=== PATIENT | male | born 1965 | race Caucasian/White ===

== ENCOUNTER 2024-05-08 17:33 | Observation (INO) ==
[2024-05-08 18:13] LABS: BILIRUBIN,URINE SMALL (NEGATIVE); GLUCOSE, URINE (UA) 100 mg/dL (NEGATIVE); KETONES,URINE (UA) NEGATIVE (NEGATIVE); LEUKOCYTE ESTERASE, URINE TRACE (NEGATIVE); NITRITE,URINE NEGATIVE (NEGATIVE); OCCULT BLOOD,URINE LARGE (NEGATIVE); PH,URINE 6.5 PH (5.0-7.5); PROTEIN,URINE 100 mg/dL (NEGATIVE); UROBILINOGEN,URINE 1 (NORMAL) E.U./dL (NORMAL)
[2024-05-08 18:20] LABS: CLARITY,URINE TURBID (CLEAR)
[2024-05-08 18:22] LABS: BACTERIA,URINE Rare /HPF (None Seen); RBC,URINE TNTC /HPF (0-5); SQUAMOUS EPITHELIAL CELL,UR NONE SEEN (<= Few); WBC,URINE 0-3 /HPF (0-3)
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
[2024-05-08 19:29] LABS: BASOPHILS # (AUTO) 0.1 10^3/uL (0.0-0.1); BASOPHILS % (AUTO) 0.6 %; EOSINOPHILS # (AUTO) 0.1 10^3/uL (0.0-0.7); EOSINOPHILS % (AUTO) 0.5 %; HCT - HEMATOCRIT 40.1 % (42.0-52.0); HGB - HEMOGLOBIN 13.1 g/dL (14.0-18.0); LYMPHOCYTES # (AUTO) 2.3 10^3/uL (1.5-3.5); LYMPHOCYTES % (AUTO) 11.5 %; MEAN CORPUSCULAR HEMOGLOBIN 29.8 pg (27.0-31.0); MEAN CORPUSCULAR HGB CONC 32.7 g/dL (32.0-36.0); MEAN CORPUSCULAR VOLUME 91.1 fL (80.0-94.0); MEAN PLATELET VOLUME 9.8 fL (7.4-11.4); MONOCYTES # (AUTO) 0.9 10^3/uL (0.0-1.0); MONOCYTES % (AUTO) 4.3 %; NEUTROPHILS # (AUTO) 16.4 10^3/uL (1.5-6.6); NEUTROPHILS % (AUTO) 82.6 %; PLT - PLATELET COUNT 411 10^3/uL (130-450); RED CELL DISTRIBUTION WIDTH 14.5 % (12.0-15.0); WHITE BLOOD COUNT 19.9 x10^3/uL (4.8-10.8)
[2024-05-08 20:00] LABS: ALBUMIN 4.4 g/dL (3.2-5.5); ALBUMIN/GLOBULIN RATIO 1.1 (1.0-2.2); BILIRUBIN,TOTAL 0.8 mg/dL (0.2-1.0); CALCIUM 9.6 mg/dL (8.5-10.3); CREATININE 2.1 mg/dL (0.6-1.3); TOTAL PROTEIN 8.4 g/dL (6.4-8.9)
[2024-05-08] MEDS ORDERED: iohexoL-300 150 ML BOTTLE ONE (22:15)
[2024-05-08] MEDS: iohexoL-300 150 ML BOTTLE IVP ONE (22:57)
--- NOTE | 2024-05-08 23:13 | ED Physician Documentation ---
ED Addendum Addendum Addendum: Care from nurse practitioner Gil. Briefly 59-year-old homeless male presents with painless hematuria. On my read of his CT he has a very large left ureterolith that has made it surprisingly far down despite being about 10 x 12 mm. He has presumably acute JOSE ALBERTO (no prior labs and does not see doctors) and a white count of 19,000. Spoke with Dr. Rolle, urology recommends admit to medicine and will see in the morning. N.p.o. after midnight. Medicine consult placed at 11:11 PM. Discharge Plan Discharge Patient Disposition: ED Place in Observation Condition: Fair Clinical Impression: Hydronephrosis with renal and ureteral calculous obstruction, JOSE ALBERTO (acute kidney injury) Hematuria Qualifiers: Hematuria type: gross Qualified Code(s): R31.0 - Gross hematuria Leukocytosis Qualifiers: Leukocytosis type: unspecified Qualified Code(s): D72.829 - Elevated white blood cell count, unspecified Print Language: Beninese Stand Alone Forms: PCP List
[2024-05-08] MEDS: cefTRIAXone 1 GM in SODIUM CHLORIDE 0.9% MINIBAG 100 ML IV STA (23:18)
--- NOTE | 2024-05-08 23:26 | CT Report ---
PROCEDURE: CT IVP INDICATIONS: new hematuria CONTRAST: Omni 300 140ml TECHNIQUE: A [address] of the abdomen and pelvis was performed. Non-contrast and contrast images were recorded and evaluated at appropriate window settings. Images were recorded and evaluated at appropriate windo w settings. Reformats: coronal and sagittal. For radiation dose reduction, the following was used: au tomated exposure control, adjustment of mA and/or kV according to patient size. COMPARISON: None. FINDINGS: Image quality: Diagnostic. Lower chest: Unremarkable. Liver: No solid mass. Gallbladder: Biliary tree: No intrahepatic or extrahepatic dilation, accounting for age. Spleen: Spleen is absent. The splenosis in the left upper quadrant, probably posttraumatic. Pancreas: No pancreatic ductal dilation. Adrenals: No adrenal nodule. Kidneys and ureters: Obstructing 1.1 cm stone in the distal left ureter, resulting in severe left-vanessa ed hydronephrosis. There is decreased enhancement of the left kidney, with urothelial wall thickening and passing about the renal pelvis. A couple of punctate, nonobstructing right-sided nephrolithiasis . Stomach, bowel and peritoneum: No bowel distension. No pathologic free fluid. Abdominal Lymph nodes: No central or retroperitoneal adenopathy. Vessels: Unremarkable. Patent portal vein. Reproductive organs: Unremarkable. Bladder: Diffuse bladder wall thickening. No calcified bladder stones. No filling defect within the o pacified bladder. Pelvic Lymph nodes: Unremarkable. Bones: No aggressive osseous abnormality. Other: None. IMPRESSION: Obstructing 1.1 cm stone in the distal left ureter, resulting in severe left-sided hydronephrosis and decreased enhancement of the left kidney. Additionally, there is urothelial thickening on the left, which may indicate superimposed infection. Correlate with CBC and recommend urology consultation. Diffuse urinary bladder wall thickening, which may be another indicator of infection. Reviewed by: Som Davenport MD on 05/08/2024 11:24 PM PST Approved by: Som Davenport MD on 05/08/2024 11:24 PM PST Station ID: [id number]
[2024-05-08] MEDS ORDERED: ONDANSETRON 4 MG/2 ML VIAL IVP PRN (23:51)
[2024-05-08] MEDS ORDERED: HYDROcod/ACETAM 5/325 MG TABLET PO PRN (23:51)
[2024-05-08] MEDS ORDERED: ACETAMINOPHEN 325 MG TABLET PO PRN (23:51)
[2024-05-08] MEDS ORDERED: ONDANSETRON ODT 4 MG TABLET TL PRN (23:51)
[2024-05-08] MEDS ORDERED: HYDROcod/ACETAM 10 MG/325 MG TABLET PO PRN (23:51)
[2024-05-08] MEDS ORDERED: SODIUM CHLORIDE FLUSH 0.9% 10 ML SYRINGE IVP PRN (23:51)
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
[2024-05-09 01:55] LABS: CHLAMYDIA TRACHOMATIS DNA NEGATIVE (NEGATIVE); NEISSERIA GONORRHOEAE DNA NEGATIVE (NEGATIVE); TRICHOMONAS VAGINALIS DNA NEGATIVE (NEGATIVE)
[2024-05-09] MEDS: SODIUM CHLORIDE FLUSH 0.9% 10 ML SYRINGE IVP SCH (02:10)
[2024-05-09] MEDS: SODIUM CHLORIDE 0.9% 1,000 ML IV SCH (02:10)
[2024-05-09] MEDS: hydrALAZINE INJ 20 MG/ML VIAL IVP ONE (04:35)
[2024-05-09 06:07] LABS: BASOPHILS # (AUTO) 0.1 10^3/uL (0.0-0.1); BASOPHILS % (AUTO) 0.9 %; EOSINOPHILS # (AUTO) 0.7 10^3/uL (0.0-0.7); HCT - HEMATOCRIT 35.4 % (42.0-52.0); HGB - HEMOGLOBIN 11.8 g/dL (14.0-18.0); LYMPHOCYTES # (AUTO) 3.2 10^3/uL (1.5-3.5); LYMPHOCYTES % (AUTO) 24.1 %; MEAN CORPUSCULAR HEMOGLOBIN 30.2 pg (27.0-31.0); MEAN CORPUSCULAR HGB CONC 33.3 g/dL (32.0-36.0); MEAN CORPUSCULAR VOLUME 90.5 fL (80.0-94.0); MEAN PLATELET VOLUME 9.8 fL (7.4-11.4); MONOCYTES # (AUTO) 1.2 10^3/uL (0.0-1.0); MONOCYTES % (AUTO) 9.5 %; NEUTROPHILS # (AUTO) 7.9 10^3/uL (1.5-6.6); NEUTROPHILS % (AUTO) 60.1 %; PLT - PLATELET COUNT 341 10^3/uL (130-450); RED BLOOD COUNT 3.91 10^6/uL (4.70-6.10); RED CELL DISTRIBUTION WIDTH 14.5 % (12.0-15.0); WHITE BLOOD COUNT 13.1 x10^3/uL (4.8-10.8)
[2024-05-09 06:23] LABS: CALCIUM 8.9 mg/dL (8.5-10.3); POTASSIUM 3.4 mmol/L (3.5-4.5)
[2024-05-09] MEDS: cefTRIAXone 2 GM in SODIUM CHLORIDE 0.9% MINIBAG 100 ML IV SCH (08:23)
--- NOTE | 2024-05-09 08:31 | PREOP HISTORY & PHYSICAL ---
Surgical History & Physical Chief Complaint/HPI Chief Complaint: hematuria History of Present Illness: Maribell is a pleasant 59-year-old unhoused man who presented to the hospital with gross hematuria. He states he has been having blood in his urine for a few days but is not sure as he lives in a car and cannot always see his urine when he voids. He has noted frequency and urgency of urination for at least a year. He thinks he had some left lower quadrant or left flank pain about a year or 2 ago but this resolved. He has never been diagnosed with a kidney stone before he is never seen a urologist before. He presented to the hospital late last night and a CT scan showed a 1.1 cm left distal ureteral stone which was obstructing with atrophy of his left kidney Home Meds and Allergies Active Medications Generic Name Dose Route Start Last Admin Trade Name Freq PRN Reason Stop Dose Admin Acetaminophen 650 mg 05/08/24 23:51 Acetaminophen 325 Mg Tablet PO Q4HR PRN Pain 1 to 4, or Fever Hydrocodone Bitart/Acetaminophen 1 tab 05/08/24 23:51 Hydrocod/Acetam 5/325 Mg Tablet PO Q4HR PRN Pain 5 to 7 Hydrocodone Bitart/Acetaminophen 1 tab 05/08/24 23:51 Hydrocod/Acetam 10 Mg/325 Mg Tablet PO Q4HR PRN Pain 8 to 10 Sodium Chloride 1,000 mls @ 100 mls/hr 05/08/24 23:45 05/09/24 02:10 Normal Saline 0.9% IV Not Given .Q10H SHAUNA Ceftriaxone Sodium 2 gm/ 100 mls @ 200 mls/hr 05/09/24 09:00 05/09/24 08:23 Sodium Chloride IV 200 mls/hr DAILY SHAUNA Administration Ondansetron HCl 4 mg 05/08/24 23:51 Ondansetron Odt 4 Mg Tablet TL Q6HR PRN Nausea / Vomiting Ondansetron HCl 4 mg 05/08/24 23:51 Ondansetron 4 Mg/2 Ml Vial IVP Q6HR PRN Nausea / Vomiting Sodium Chloride 10 ml 05/08/24 23:51 Sodium Chloride Flush 0.9% 10 Ml Syringe IVP PRN PRN NEEDED PER PROVIDER ORDERS Sodium Chloride 10 ml 05/09/24 01:00 05/09/24 08:24 Sodium Chloride Flush 0.9% 10 Ml Syringe IVP 10 ml 0100,0900,1700 SHAUNA Administration Allergies Allergy/AdvReac Type Severity Reaction Status Date / Time No Known Drug Allergies Allergy Verified 05/08/24 17:39 Vital Signs O2 Saturation: 97 Patient Review Patient Review Pertinent Tests Reviewed [facility] Surgical History Surgical History (Updated 05/08/24 @ 17:47 by Osvaldo Crooks RN) H/O splenectomy Social History Social History (Updated 05/08/24 @ 17:47 by Osvaldo Crooks RN) Smoking Status: Current every day smoker If you are a former smoker, when did you quit? (Date/Year): 1 Number of Years Smoked: 40 How many cigarettes a day do you smoke? (20 cigarettes=1 Pk): 10 Second hand tobacco smoke exposure: No Do you dip or chew tobacco?: No Do you vape?: No Living arrangement: Homeless Relationship: Level: Independent Do you feel safe in your home environment?: Yes Suffered physical, verbal, emotional, or financial abuse?: No History of Abuse: No ETOH Use: None Substance Use: cannabis (any form) POLST Patient has POLST: No Exam Exam NAD disheveled RRR CTA b/l Assessment & Plan Assessment & Plan Assessment & Plan: 59yo unhoused man with Left 1.1 cm distal ureteral stone with obstruction. Likely longstanding. Has an JOSE ALBERTO versus CKD. I suspect he has lost renal function in his left kidney. I recommend cystoscopy, left ureteroscopy, laser lithotripsy, stent. The risk of the procedure including infection, bleeding, injury to adjacent structures, need for additional procedures, failure of therapy, pain were discussed. We discussed he will have to have a stent afterwards which will require him to remove the stent using a string or perhaps a follow-up with me in the office Patient states understanding and consents to the above plan. He has been marked and consented NPO until procedure
[2024-05-09 11:21] LABS: ESTIMATED AVERAGE GLUCOSE 117 mg/dL (70-100); HEMOGLOBIN A1c% 5.7 % (4.27-6.07)
--- NOTE | 2024-05-09 12:36 | PHARMACY PROGRESS NOTE ---
Best Possible Medication History Admit Date and Time: 05/08/24 6161 Home Medications Medication Instructions Recorded Confirmed Type No Known Home Medications 05/09/24 05/09/24 History Processed by: Pharmacy Medications reviewed in ED?: No Medication History completed: Yes Patient Interview: Completed [facility] Statement: As the person ultimately responsible for medication therapy, providers are able to order a medication from an existing home medication list in [facility] via the "Reconcile Routine" prior to Confirmation of that medication by aircraft life support fitter. Such practice is discouraged except when the physician, in their clinical judgment, deems that a medical need exists for a medication without regard to previous use.
[2024-05-09] MEDS ORDERED: LIDOCAINE 2% URO-JET 5 ML SYRINGE UR ONE ×2 (14:20→16:21)
[2024-05-09] MEDS ORDERED: fentaNYL 100 MCG/2 ML VIAL IVP PRN (14:31)
[2024-05-09] MEDS ORDERED: HYDROmorphone 0.5 MG/0.5 ML SYRINGE IVP PRN (14:31)
[2024-05-09] MEDS ORDERED: METOCLOPRAMIDE 10 MG/2 ML VIAL IVP PRN (14:31)
[2024-05-09] MEDS ORDERED: NALOXONE 0.4 MG/ML VIAL IVP PRN (14:31)
[2024-05-09] MEDS ORDERED: ATROPINE ABBOJECT 1 MG/10 ML SYRINGE IVP PRN (14:31)
[2024-05-09] MEDS ORDERED: ePHEDrine 50 MG/ML VIAL IVP PRN (14:31)
[2024-05-09] MEDS ORDERED: ONDANSETRON 4 MG/2 ML VIAL IVP PRN (14:31)
[2024-05-09] MEDS ORDERED: MORPHINE 2 MG/ML CARPUJECT IVP PRN (14:31)
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
[2024-05-09] MEDS ORDERED: LACTATED RINGERS 1,000 ML IV SCH (15:00)
[2024-05-09] MEDS ORDERED: iohexoL-240 10 ML VIAL IVP ONE (15:21)
[2024-05-09] MEDS ORDERED: LIDOCAINE-PF 2% 10 ML AMP SUBQ ONE (15:27)
[2024-05-09] MEDS ORDERED: fentaNYL 100 MCG/2 ML VIAL ONE (15:27)
[2024-05-09] MEDS ORDERED: MIDAZOLAM 2 MG/2 ML VIAL ONE (15:27)
[2024-05-09] MEDS ORDERED: PROPOFOL 200 MG/20 ML VIAL IVP ONE (15:27)
[2024-05-09] MEDS ORDERED: ePHEDrine 50 MG/ML VIAL IVP ONE (16:05)
[2024-05-09] MEDS ORDERED: DEXAMETHASONE 4 MG/ML VIAL ONE (16:20)
[2024-05-09] MEDS ORDERED: ONDANSETRON 4 MG/2 ML VIAL ONE (16:20)
--- NOTE | 2024-05-09 16:49 | OPERATIVE REPORT ---
Operative Report General Admit Date: 05/08/24 Procedure Data: Operation Date: 05/09/24 16:10 Proposed Procedures p CYSTO, LEFT URETEROSCOPY, LASER LITHOTRIPSY, URETERAL STENT PLACEMENT(Left) - Dino Rolle MD Actual Procedures p CYSTO, LEFT URETEROSCOPY, LASER LITHOTRIPSY, URETERAL STENT PLACEMENT(Left) - Dino Rolle MD Pre-Op Diagnosis: URETERAL STONE Anesthesia Type General Case Staff Anesthesia Provider: Merlin Wang Times Into Recovery: 05/09/24 16:38 Procedure Start: 05/09/24 15:59 Procedure End: 05/09/24 16:29 Time out: 05/09/24 15:59 Implants STENT URETERAL [id number] Pre-Op Diagnosis: left ureteral stone Post Op Diagnosis: left ureteral stone Procedure Note Pathology: none Findings: large radioopaque distal ureteral stone narrow meatus Complications: none Other Other Information/Narrative: After informed consent was obtained the patient was brought to the OR and laid in the supine position. The patient was anesthetized per anesthesia protocols and prepped and draped in the usual sterile fashion in the dorsolithotomy position. A formal timeout was performed reconfirmed the patient, procedure and laterality. 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 A 22 [place] cystoscope was then advanced easily into urinary bladder. His bladder had bloody urine in it with no clots. His bladder was inspected and full and there were no masses, lesions or other concerns. His prostate was moderately obstructing without median lobe. His left ureteral orifice was identified and a sensor wire was placed into it up into the kidney. Fluoroscopy showed a large 1.1 cm radiopaque stone in the distal ureter almost at the UVJ. His bladder was emptied and a 12 [place] Ramírez catheter was placed to drain the bladder continuously. A short semirigid ureteroscope was then advanced into the left UVJ. We immediately came upon a large yellow crystalline stone. Using a 200 m laser fiber at a rate of 8 and a power of 1.2 we fragmented the stone into small pieces. The pieces were all small at that point. We then emptied his bladder and placed a 6 [place] 28 cm stent with good curling noted in the kidney and good curling noted in the bladder. The bladder was emptied and a Uro-Jet was placed. The stent was left on a string and was taped using a Tegaderm to his penis. This concluded the procedure the patient tolerated the procedure well. He was brought to the PACU without further incident. He will return to the floor tonight with discharge likely tomorrow. He will remove the stent in 3 days time. He will follow-up with urology in 3 months time with an x-ray
[2024-05-09 16:56] VITALS: TEMP 97.7
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
[2024-05-09 17:46] VITALS: BP 185/89; O2SAT 97
--- NOTE | 2024-05-09 18:29 | ANESTHESIA POST OP EVALUATION ---
Anesthesia Post Eval Post Anesthesia Eval Vitals: Last Vital Signs Temp 36.5 C 05/09/24 17:30 Pulse 51 L 05/09/24 17:30 Resp 20 05/09/24 17:30 BP 185/89 H 05/09/24 17:30 Pulse Ox 97 05/09/24 17:30 CV Function Including HR & BP: Stable Pain Control: Satisfactory Nausea & Vomiting: Negative Mental Status: Baseline Respiratory Status: Airway Patent Hydration Status: Satisfactory Anesthesia Complications: None
--- NOTE | 2024-05-10 13:20 | XRAY Report ---
PROCEDURE: FL OR C-Arm Procedure INDICATIONS: Surgical Procedure FLUORO TIME: 0:03 MIN TECHNIQUE: 3 intraoperative images of the left ureter. COMPARISON: CT IVP 05/08/2024 FINDINGS: Stone again seen at the distal left ureter. There is a catheter in the left ureter with the tip coile d in the left renal pelvis. IMPRESSION: Intraoperative guidance provided for left ureteral stent placement. Reviewed by: Shakeel Boston MD on 05/10/2024 1:19 PM PST Approved by: Shakeel Boston MD on 05/10/2024 1:19 PM PST Station ID: [id number]
== END 2024-05-09 18:41 | disposition home or self-care (01) ==
LOC: MS2 17:33 → ED 17:33 → MS2 05-09 00:36
PROVIDERS: ADMIT Internal Medicine; ATTEND Internal Medicine
DX: F17.210 Nicotine dependence, cigarettes, uncomplicated; Z58.6 Inadequate drinking-water supply; N13.6 Pyonephrosis; Z90.81 Acquired absence of spleen; Z59.02 Unsheltered homelessness; N17.9 Acute kidney failure, unspecified; Z59.48 Other specified lack of adequate food